=== PATIENT | male | born 1950 | race Caucasian/White ===

== ENCOUNTER 2021-04-25 09:56 | Outpatient (CLI) | payer MEDICARE, SELFPAY ==
[2021-04-25 11:35] LABS: SARS-CoV-2 RNA PCR Negative (Negative)
== END 2021-04-25 09:57 | disposition home or self-care (01) ==
PROVIDERS: Visit Provider Anesthesiology Pain Medicine
DX: Z01.812 Encounter for preprocedural laboratory examination (principal); Z20.822 Contact with and (suspected) exposure to COVID-19
CPT/HCPCS: C9803; U0003; U0005